=== PATIENT | female | born 1945 | race Caucasian/White ===

== ENCOUNTER 2019-08-24 13:07 | Outpatient (RCR) | payer MEDICARE, SELFPAY ==
--- NOTE | 2019-08-24 19:23 | ONC CON_ITS ---
Dr. Clifford New Patient Note Patient: Stephanie Hillman Unit #: [id number]: 1945 Dicatated By: Ankit Clifford M.D.Date of Visit: Aug 24, 2019 Onc MED New Patient/Consult Referring Physician: Dr. DEMETRIO NICHOLS M.D. Chief Complaint: Colon cancer. 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 She has been in good general health. She had a screening colonoscopy done by Dr. Jassi Dominguez on 07/01/2019. The only significant finding was a solitary deep transverse ulcer in the proximal ascending colon. It ranged in size from 8 mm to 12 mm. Biopsy showed at least intramucosal adenocarcinoma within a background of adenomatous tissue with high-grade dysplasia. Evaluation of mismatch repair proteins by IHC showed loss of nuclear expression of MLH1 and PMS2. In addition, the BRAF V600E mutation was detected. 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 CT of the abdomen/pelvis on 07/13/2019 showed a suggestion of increased soft tissue density involving the intraluminal mid a sending colon. There were atherosclerotic peripheral vascular changes noted. There was no other evidence of malignancy in the abdomen or pelvis. With those findings, she was referred to Dr. Nichols, and on 07/29/2019 she underwent laparoscopic right hemicolectomy. Pathology showed grade 2 invasive adenocarcinoma with invasion into but not through the muscularis propria. The surgical margins were free. Lymphovascular and perineural invasion were not identified. There was no involvement in 22 lymph nodes. Her pathologic staging was T2, N0. Her other medical illnesses have been limited to hypothyroidism and hyperlipidemia. Her only other surgery was a tonsillectomy. She has a history of smoking for 20 years, less than 1 pack of cigarettes daily. She quit smoking 34 years ago. She is feeling good generally. Her energy is getting better, and she is doing light work again. Her ECOG score is 1. Her appetite is good, though she does have some mild postprandial nausea and some early satiety. Her weight is stable, though. She has no fever, night sweats, or hot flashes. Her bowels have been loose since the surgery, and she does have some urgency with defecation. She has not been aware of any blood in the stool. She has no complaints. She has had some pain in her right thumb and she says her right hand goes to sleep a lot. She has no other joint or bone pain and no other focal neurologic symptoms. Past Medical History: Her medical history includes hyperlipidemia and hypothyroidism. Past Surgical History: She underwent colonoscopy on 07/01/2019 and she underwent laparoscopic right hemicolectomy on 07/29/2019. Her only other surgery was a tonsillectomy in 4. Medications: Atorvastatin Calcium 1 Tablet (of 20 mg) Oral daily, Fish Oil Concentrate 1 Capsule (of 1000 mg) Oral daily, Levothyroxine Sodium 1 Tablet (of 75 mcg) Oral daily Allergies: No Known Allergies. Social History: Ms. Hillman is and she is retired. Ms. Hillman quit smoking 34 years ago but had smoked 1.0 pack/day for 20 years. She has no history of drinking. Ms. Hillman reports the following support systems: lives with spouse, significant other, family, or friends, lives in own house, supportive family/friends willing to assist with needs, and adequate transportation available for expected visits. Her diet consists of regular meals. She indicates her activity level as: light exercise. She has a history of smoking for 20 years, less than 1 pack of cigarettes daily. She quit smoking 34 years ago. She does not drink alcohol. Family History: Ms. Hillman's mother at age 72: stroke, and urinary sepsis. Ms. Hillman's father at age 23: motor vehicle accident. Ms. Hillman has 1 brother who is alive. Father in a motor vehicle accident at age 23. Mother with complications of stroke at age 72. A brother has diabetes. A half-sister was recently found to have breast cancer. Review Of Symptoms: Constitutional - She feels good and her energy is starting to get better. She does light housework. Her appetite is good and her weight is stable. No fever, chills, hot flashes, or night sweats. ECOG score is 1, Eyes - No change in vision, ENMT - No hearing loss. She has tinnitus. No sinus congestion/drainage. No mouth sores. No sore throat or difficulty swallowing, Hematologic/Lymphatic - No abnormal bruising or bleeding, Respiratory - No shortness of breath. No cough. No pleuritic pain or hemoptysis, Cardiovascular - No angina pain. No palpitations, Gastrointestinal - She has occasional nausea and feeling of fullness. No vomiting. She has occasional heartburn. She has been having loose stools and she has some urgency with defecation. No blood in the stool or black stools, Genitourinary (F) - No dysuria or hematuria. No urinary frequency. No urgency or incontinence, Musculoskeletal - She has some pain in her right thumb. She has no other joint or bone pain, Integumentary - No skin complications, Neurologic - She has occasional migraines. No dizziness. She has numbness in her right hand, Psychiatric - No anxiety or depression. No insomnia. Vital Signs: Performed on Aug 24, 2019 14:45: 0, 23.56, 1.71 sq.m, 65 in, 99 %, 48 /min (LOW), 20 /min, 144/66 mm(hg) (HIGH), 99.0 F (HIGH), and 141.6 lbs (HIGH). Physical Examination: Constitutional - She appears to be in good general health, Eyes - Sclerae nonicteric. Conjunctivae clear, ENMT - No lesions noted in the oral cavity, Neck - No mass or thyromegaly, Hematologic/Lymphatic - No cervical, clavicular, or axillary adenopathy, Respiratory - Lungs are clear with good air movement bilaterally, Cardiovascular - Heart rhythm is regular. There is no murmur, gallop, or rub noted, Abdomen - Soft and non-tender. Her incisions appear well healed. Liver and spleen are not enlarged. There is no abdominal mass or ascites noted and there is no inguinal adenopathy, Back/Spine - No spine or CVA tenderness noted, Extremities - No edema. Dorsalis pedis pulses are palpable bilaterally, Integumentary - No rashes. No suspicious skin lesions noted, Neurologic - No focal neurologic deficits noted. Impression: 1. Patient with grade 2 invasive adenocarcinoma of the ascending colon, stage I (T2, N0, M0). 2. The tumor showed deficient mismatch repair proteins by IHC with loss of nuclear expression of MLH1 and PMS2. In addition, the BRAF V600E mutation was detected. 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 3. She underwent laparoscopic right hemicolectomy on 07/29/2019. Her other medical illnesses include: 4. Hypothyroidism. 5. Hyperlipidemia. Plan: The pathology results were reviewed with the patient and her . We discussed the clinical implications. She is seen following laparoscopic right hemicolectomy for a grade 2 adenocarcinoma of the ascending colon. She had pathologic stage I disease, with adequate lymph node sampling and with no other adverse prognostic indicators. As such, there is no indication for adjuvant chemotherapy. She will be followed on a surveillance regimen to include follow-up visits and lab studies every [address]. She also will be following up with Dr. Nichols in regard to her surveillance colonoscopy schedule. I will see her here again in 6 months. Signed By: Ankit Clifford M.D. <<Signature on File>>
== END 2019-09-17 23:59 | disposition home or self-care (01) ==
LOC: ONCMED 13:07
PROVIDERS: Family Provider Family Medicine; Visit Provider Internal Medicine Medical Oncology
DX: C18.2 Malignant neoplasm of ascending colon (principal); E03.9 Hypothyroidism, unspecified; E78.5 Hyperlipidemia, unspecified; Z87.891 Personal history of nicotine dependence; Z90.49 Acquired absence of other specified parts of digestive tract
CPT/HCPCS: 99204

== ENCOUNTER 2019-09-02 11:36 | Outpatient (CLI) | payer MEDICARE, SELFPAY ==
--- NOTE | 2019-09-02 11:50 | MM_ITS ---
WS: [id number] SCREENING DIGITAL MAMMOGRAM WITH CAD HISTORY: SCREENING COMPARISON: 04/27/2018 and 10/06/2015 Bilateral CC and MLO views submitted. Computer aided detection analyzed. Breast composition: There are scattered areas of fibroglandular density. No suspicious masses, microc alcifications or architectural distortion. MM/[id number] IMPRESSION: BI-RADS: 1-Negative FOLLOW UP: 1 Year Follow-up
== END 2019-09-02 11:37 | disposition home or self-care (01) ==
LOC: RADSHAW 11:45
PROVIDERS: Family Provider Family Medicine; PCP Family Medicine; Visit Provider Family Medicine
DX: Z12.31 Encounter for screening mammogram for malignant neoplasm of breast (principal)
CPT/HCPCS: 77067

== ENCOUNTER 2020-03-02 11:00 | Outpatient (CLI) | payer MEDICARE, SELFPAY ==
[2020-03-02 11:29] LABS: Basophils % 0.2 %; Eosinophils # 0.1 10^3/uL (0.0-0.8); Eosinophils % 1.4 %; Hematocrit 41.6 % (37.0-47.0); Lymphocytes % 50.9 %; Mean Corpuscular HGB Conc 33.7 g/dL (30.0-36.0); Mean Corpuscular Hemoglobin 30.5 pg (28.0-34.0); Mean Corpuscular Volume 90.6 fL (81-99); Mean Platelet Volume 11.3 fL (7.4-10.4); Monocytes # 0.4 10^3/uL (0.2-0.9); Monocytes % 7.3 %; Neutrophils # 2.38 10^3/uL (1.8-7.7); Neutrophils % 40.2 %; Nucleated Red Blood Cells % 0 %; Platelet Count 193 10^3/cmm (130-400); Red Blood Count 4.59 10^6/uL (4.1-5.3); Red Cell Distribution Width 13.2 % (12.1-15.1); White Blood Count 5.9 10^3/uL (4.0-10.0)
[2020-03-02 11:50] LABS: Carcinoembryonic Antigen 1.3 ng/mL (0.0-4.7)
[2020-03-02 12:01] LABS: Alanine Aminotransferase 29 U/L (0-33); Albumin Level 4.3 g/dL (3.5-5.2); Alkaline Phosphatase 74 IU/L (35-105); Anion Gap 13.9 (5-19); Aspartate Amino Transferase 31 U/L (0-32); Blood Urea Nitrogen 7 mg/dL (8-23); Calcium 9.2 mg/dL (8.5-10.5); Carbon Dioxide 26 mmol/L (22-29); Chloride 101 mmol/L (98-107); Globulin 3.3 g/dL (1.3-4.6); Glucose 108 mg/dL (65-115); Osmolality Calculated 278 mOsm/kg (285-295); Potassium 4.9 mmol/L (3.5-5.1); Sodium 136 mmol/L (136-145); Total Bilirubin 0.5 mg/dL (0.15-1.2); Total Protein 7.6 g/dL (6.6-8.7)
[2020-03-02 15:22] LABS: Chol HDL Ratio 1.88 mg/dL (0.0-4.40); Cholesterol 124 mg/dL (0-200); Free T4 Free Thyroxine 1.44 ng/dL (0.82-1.77); HDL Cholesterol 66 mg/dL (60-100); LDL Cholesterol Calculated 44 mg/dL (50-129); LDL HDL Ratio 0.67 RATIO (0.00-3.22); Thyroid Stimulating Hormone 1.18 uIU/mL (0.27-4.20); Triglycerides 71 mg/dL (0-150)
--- NOTE | 2020-03-05 15:54 | ONC FU_ITS ---
Dr. Cliffodr Patient Follow-Up Note Patient: Stephanie Hillman Unit #: [id number]: 1945 Dicatated By: Ankit Clifford M.D.Date of Visit:Mar 02, 2020 Onc Med Follow-up/Prog Note Chief Complaint: Colon cancer. 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 She has been in good general health. She had a screening colonoscopy done by Dr. Jassi Dominguez on 07/01/2019. The only significant finding was a solitary deep transverse ulcer in the proximal ascending colon. It ranged in size from 8 mm to 12 mm. Biopsy showed at least intramucosal adenocarcinoma within a background of adenomatous tissue with high-grade dysplasia. Evaluation of mismatch repair proteins by IHC showed loss of nuclear expression of MLH1 and PMS2. In addition, the BRAF V600E mutation was detected. 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 CT of the abdomen/pelvis on 07/13/2019 showed a suggestion of increased soft tissue density involving the intraluminal mid a sending colon. There were atherosclerotic peripheral vascular changes noted. There was no other evidence of malignancy in the abdomen or pelvis. With those findings, she was referred to Dr. Nichols, and on 07/29/2019 she underwent laparoscopic right hemicolectomy. Pathology showed grade 2 invasive adenocarcinoma with invasion into but not through the muscularis propria. The surgical margins were free. Lymphovascular and perineural invasion were not identified. There was no involvement in 22 lymph nodes. Her pathologic staging was T2, N0. I had seen her initially on 08/24/2019. With stage I disease there was no indication for adjuvant chemotherapy, and observation/expectant management was recommended. Her other medical illnesses have been limited to hypothyroidism and hyperlipidemia. Her only other surgery was a tonsillectomy. She has a history of smoking for 20 years, less than 1 pack of cigarettes daily. She quit smoking 34 years ago. She is seen for a follow-up visit. She has been feeling good generally. She has good energy and activity tolerance. Her ECOG score is 0. Her appetite is good. She has no fever or night sweats. She has no shortness of breath, cough, or chest pain. She has no GI/ complaints other than her stools are sometimes a little thin. She has some joint pain, mainly in the thumbs, but it is managed adequately with hyaluronic acid. She has occasional migraine headache. She has some carpal tunnel symptoms bilaterally. She has no other focal neurologic symptoms. Medications: Atorvastatin Calcium 1 Tablet (of 20 mg) Oral daily, Fish Oil Concentrate 1 Capsule (of 1000 mg) Oral daily, Hyaluronic Acid 1 Capsule (of 20-60 mg) Oral daily, Levothyroxine Sodium 1 Tablet (of 75 mcg) Oral daily Allergies: No Known Allergies. Review of Systems: Constitutional - She is feeling good. Her energy is good. She has normal activity without restrictions. Her appetite is good and her weight is up about 6 pounds from last visit. No fever, night sweats, or hot flashes. ECOG score is 0, ENMT - No sinus congestion/drainage. No mouth sores. No sore throat or difficulty swallowing, Hematologic/Lymphatic - No abnormal bruising or bleeding, Respiratory - No shortness of breath. No cough. No pleuritic pain or hemoptysis, Cardiovascular - No angina pain. No palpitations, Gastrointestinal - No nausea or vomiting. No heartburn or acid reflux. She has loose stools No constipation. No blood in the stool or black stools, Genitourinary (F) - No dysuria or hematuria. No urinary frequency. No urgency or incontinence, Musculoskeletal - She has joint pain in her hands and fingers, Integumentary - No skin complications, Neurologic - No headache or dizziness. No numbness or tingling. No other focal neurologic symptoms, Psychiatric - No anxiety or depression. No insomnia. Vital Signs: Performed on Mar 02, 2020 12:47 Height - 65.00 in Weight - 147.0 lbs (HIGH) BSA - 1.74 sq.m BMI - 24.46 Temperature - 97.8 F (LOW) Pulse - 49 /min (LOW) Respiration - 22 /min BP - 135/62 mm(hg) O2 Sat - 98 % Pain - 0 Physical Examination: Constitutional - She looks good generally, Eyes - Sclerae nonicteric. Conjunctivae clear, ENMT - No lesions noted in the oral cavity, Hematologic/Lymphatic - No cervical, clavicular, or axillary adenopathy, Respiratory - Lungs are clear with good air movement bilaterally, Cardiovascular - Heart rhythm is regular. There is no murmur, gallop, or rub noted, Abdomen - Soft. Liver and spleen are not enlarged. There is no abdominal mass or ascites noted and there is no inguinal adenopathy, Extremities - No edema, Neurologic - No focal neurologic deficits noted. Lab/Imaging: Test performed on Mar 02, 2020 11:12 Sodium 136 mmol/L Potassium 4.9 mmol/L Chloride 101 mmol/L CO2 26 mmol/L Anion Gap 13.9 BUN 7 mg/dL Creatinine 0.6 mg/dL Cr Clearance (Est) 87.90 mL/min Glucose 108 mg/dL Calcium 9.2 mg/dL Protein, Total 7.6 g/dL Albumin 4.3 g/dL Globulin 3.3 g/dL Bilirubin, Total 0.5 mg/dL ALT (SGPT) 29 U/L AST (SGOT) 31 U/L Alkaline Phosphatase 74 IU/L WBC 5.9 10 3/uL RBC 4.59 10 6/uL HGB 14.0 g/dL HCT 41.6 % MCV 90.6 fL MCH 30.5 pg MCHC 33.7 g/dL RDW 13.2 % Platelet Count 193 10 3/cmm MPV 11.3 fL Neutrophils 2.38 10 3/uL Lymphocytes 3.0 10 3/uL Monocytes 0.4 10 3/uL Eosinophils 0.1 10 3/uL Basophils 0.0 10 3/uL Neutrophil % 40.2 % Lymphocyte % 50.9 % Monocyte % 7.3 % Eosinophil % 1.4 % Basophils % 0.2 % NRBC % 0 % CEA 1.3 ng/mL Impression: 1. Patient with grade 2 invasive adenocarcinoma of the ascending colon, stage I (T2, N0, M0). 2. The tumor showed deficient mismatch repair proteins by IHC with loss of nuclear expression of MLH1 and PMS2. In addition, the BRAF V600E mutation was detected. 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 3. She underwent laparoscopic right hemicolectomy on 07/29/2019. Her other medical illnesses include: 4. Hypothyroidism. 5. Hyperlipidemia. With stage I disease there was no indication for adjuvant chemotherapy. She is being followed on observation/expectant management. Thus far she appears to be doing well clinically with no evidence of recurrence of the colon cancer. Plan: She remains on observation/expectant management. I will see her again in 6 months. She will have surveillance CT scans with that visit, per NCCN guidelines. She also will need surveillance colonoscopy. She would like to have that done by Dr. Dominguez, if possible. Signed By: Ankit Clifford M.D. <<Signature on File>>
== END 2020-03-02 11:01 | disposition home or self-care (01) ==
LOC: ONCMED 11:05
PROVIDERS: PCP Family Medicine; Visit Provider Internal Medicine Medical Oncology
DX: Z08 Encounter for follow-up examination after completed treatment for malignant neoplasm (principal); Z85.038 Personal history of other malignant neoplasm of large intestine; E03.9 Hypothyroidism, unspecified; E78.5 Hyperlipidemia, unspecified; Z90.49 Acquired absence of other specified parts of digestive tract
CPT/HCPCS: 80053; 80061; 82378; 84439; 84443; 85025; G0463

== ENCOUNTER 2020-09-12 07:40 | Outpatient (CLI) | payer MEDICARE, SELFPAY ==
[2020-09-12 08:47] LABS: Basophils % 0.3 %; Eosinophils # 0.1 10^3/uL (0.0-0.8); Eosinophils % 1.5 %; Hematocrit 41.7 % (37.0-47.0); Hemoglobin 14.4 g/dL (11.5-15.3); Lymphocytes # 2.9 10^3/uL (0.8-4.8); Lymphocytes % 48.2 %; Mean Corpuscular HGB Conc 34.5 g/dL (30.0-36.0); Mean Corpuscular Volume 89.7 fL (81-99); Mean Platelet Volume 11.3 fL (7.4-10.4); Monocytes # 0.5 10^3/uL (0.2-0.9); Monocytes % 8.1 %; Neutrophils # 2.47 10^3/uL (1.8-7.7); Neutrophils % 41.7 %; Nucleated Red Blood Cells % 0 %; Platelet Count 195 10^3/cmm (130-400); Red Blood Count 4.65 10^6/uL (4.1-5.3); Red Cell Distribution Width 12.8 % (12.1-15.1); White Blood Count 5.9 10^3/uL (4.0-10.0)
--- NOTE | 2020-09-12 08:48 | CT_ITS ---
WS: [id number] CT CHEST, ABDOMEN, AND PELVIS TECHNIQUE: Contrast-enhanced CT of the chest, abdomen, and pelvis with coronal and sagittal reformatt ed images. CLINICAL INFORMATION: COLON CANCER COMPARISON: CT 11 ,018 DLP: 1111.[address] scans at [facility] use at least one of these dose optimization techniques: automat ed exposure control; mA and/or kV adjustment per patient size (includes targeted exams where dose is matched to clinical indication); or iterative reconstruction. CT CHEST: Lungs are well aerated. No suspicious pulmonary parenchymal opacities. No acute pulmonary infiltrates . No focal consolidation or pleural fluid. No mediastinal or hilar lymphadenopathy. No axillary lymph adenopathy. Fatty infiltration of the liver. Normal caliber thoracic aorta. Small amount of tree-in-b ud infiltrate in the right upper lobe likely inflammatory. CT ABDOMEN AND PELVIS: Diffuse fatty infiltration of the liver. Normal portal vein and splenic vein. Normal gallbladder. Nor mal spleen Normal GE junction. Normal pancreas. Normal adrenal glands. Normal renal parenchymal enhan cement. No hydronephrosis. Normal caliber abdominal aorta. No abdominal lymphadenopathy. Sigmoid diverticulosis. No evidence of high-grade small or large bowel obstruction. Evidence of right colectomy. No pelvic or inguinal lymphadenopathy. Disc space narrowing worse at L3-L4 L4-L5 and L5-S 1. CT/CT chest abd pel w con* IMPRESSION: 1. No evidence of metastatic disease in the chest abdomen or pelvis. 2. No mediastinal or hilar lymphadenopathy. No abdominal or pelvic lymphadenop athy. 3. Evidence of prior right hemicolectomy. 4. No hydronephrosis in either kidney. 5. Sigmoid diverticulosis.
[2020-09-12 09:40] LABS: Alanine Aminotransferase 49 U/L (0-33); Albumin Level 4.1 g/dL (3.5-5.2); Alkaline Phosphatase 81 IU/L (35-105); Blood Urea Nitrogen 9 mg/dL (8-23); Calcium 9.4 mg/dL (8.5-10.5); Carbon Dioxide 27 mmol/L (22-29); Chloride 104 mmol/L (98-107); Globulin 3.6 g/dL (1.3-4.6); Glucose 103 mg/dL (65-115); Osmolality Calculated 285 mOsm/kg (285-295); Sodium 138 mmol/L (136-145); Total Bilirubin 0.7 mg/dL (0.15-1.2); Total Protein 7.7 g/dL (6.6-8.7)
[2020-09-12] MEDS: iohexol 300 mg/mL 50 mL Btl PO (09:40)
[2020-09-12 09:43] LABS: Aspartate Amino Transferase 53 U/L (0-32)
[2020-09-12] MEDS: iohexol 300 mg/mL 100 mL Btl IV (10:40)
[2020-09-12 15:28] LABS: Carcinoembryonic Antigen 1.2 ng/mL (0.0-4.7)
== END 2020-09-12 07:41 | disposition home or self-care (01) ==
PROVIDERS: PCP Family Medicine; Visit Provider Internal Medicine Medical Oncology
DX: C18.2 Malignant neoplasm of ascending colon (principal)
CPT/HCPCS: 36415; 71260; 74177; 80053; 82378; 85025; Q9967

== ENCOUNTER 2020-09-14 06:01 | Outpatient (CLI) | payer MEDICARE, SELFPAY ==
--- NOTE | 2020-09-14 09:56 | ONC FU_ITS ---
Dr. Clifford Patient Follow-Up Note Patient: Stephanie Hillman Unit #: [id number]: 1945 Dicatated By: Ankit Clifford M.D.Date of Visit:Sep 14, 2020 Onc Med Follow-up/Prog Note Chief Complaint: Colon cancer. 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 She had a screening colonoscopy done by Dr. Jassi Dominguez on 07/01/2019. The only significant finding was a solitary deep transverse ulcer in the proximal ascending colon. It ranged in size from 8 mm to 12 mm. Biopsy showed at least intramucosal adenocarcinoma within a background of adenomatous tissue with high-grade dysplasia. Evaluation of mismatch repair proteins by IHC showed loss of nuclear expression of MLH1 and PMS2. In addition, the BRAF V600E mutation was detected. 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 CT of the abdomen/pelvis on 07/13/2019 showed a suggestion of increased soft tissue density involving the intraluminal mid a sending colon. There were atherosclerotic peripheral vascular changes noted. There was no other evidence of malignancy in the abdomen or pelvis. With those findings, she was referred to Dr. Nichols, and on 07/29/2019 she underwent laparoscopic right hemicolectomy. Pathology showed grade 2 invasive adenocarcinoma with invasion into but not through the muscularis propria. The surgical margins were free. Lymphovascular and perineural invasion were not identified. There was no involvement in 22 lymph nodes. Her pathologic staging was T2, N0. I had seen her initially on 08/24/2019. With stage I disease there was no indication for adjuvant chemotherapy, and observation/expectant management was recommended. Her other medical illnesses have been limited to hypothyroidism and hyperlipidemia. Her only other surgery was a tonsillectomy. She has a history of smoking for 20 years, less than 1 pack of cigarettes daily. She quit smoking 34 years ago. She is seen for a follow-up visit. She says she has been feeling fine. Her energy is pretty good. She has normal activity. ECOG score is 0. Her appetite is good. She has no fever or night sweats. She has no shortness of breath, cough, or chest pain. She has no GI/ complaints other than her bowels have been a little loose since her colon surgery. She has back pain, which has been going on for years. She has no other joint or bone pain. She does not complain of headache or dizziness. She sometimes has numbness in her right hand, but that she attributes to quilting. Medications: Atorvastatin Calcium 1 Tablet (of 20 mg) Oral daily, Fish Oil Concentrate 1 Capsule (of 1000 mg) Oral daily, Hyaluronic Acid 1 Capsule (of 20-60 mg) Oral daily, Levothyroxine Sodium 1 Tablet (of 75 mcg) Oral daily Allergies: No Known Allergies. Vital Signs: Performed on Sep 14, 2020 09:08 Height - 65.00 in Weight - 149 lbs (HIGH) BSA - 1.75 sq.m BMI - 24.80 Temperature - 97.0 F (LOW) Pulse - 60 /min Respiration - 17 /min BP - 162/71 mm(hg) (HIGH) O2 Sat - 98 % Pain - 0 Physical Examination: Constitutional - She looks good generally, Eyes - Sclerae nonicteric. Conjunctivae clear, ENMT - No lesions noted in the oral cavity, Hematologic/Lymphatic - No cervical, clavicular, or axillary adenopathy, Respiratory - Lungs are clear with good air movement bilaterally, Cardiovascular - Heart rhythm is regular. There is no murmur, gallop, or rub noted, Abdomen - Soft. Liver and spleen are not enlarged. There is no abdominal mass or ascites noted and there is no inguinal adenopathy, Extremities - No edema, Neurologic - No focal neurologic deficits noted. Lab/Imaging: CBC shows hemoglobin 14.4 g, white blood cell count 5900, and platelet count 195,000. Comprehensive metabolic profile is unremarkable except for slightly elevated liver enzymes with SGOT 53/32 and SGPT 49/33 U/L. The alkaline phosphatase and bilirubin are normal. CEA is stable at 1.2 ng/mL. Surveillance CT scans on 09/12/2020 showed no evidence of metastatic disease in the chest, abdomen, or pelvis. Problem List: 1. Ekaterina 2 invasive adenocarcinoma of the ascending colon, stage I (T2, N0, M0). The tumor showed deficient mismatch repair proteins by IHC with loss of nuclear expression of MLH1 and PMS2. In addition, the BRAF V600E mutation was detected. 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 2. She underwent laparoscopic right hemicolectomy on 07/29/2019. Adjuvant chemotherapy was not recommended. 3. Hypothyroidism. 4. Hyperlipidemia. Problems Addressed with this Encounter and Plan: Ekaterina 2 invasive adenocarcinoma of the ascending colon, stage I (T2, N0, M0). The tumor showed deficient mismatch repair proteins by IHC with loss of nuclear expression of MLH1 and PMS2. She is being followed on observation/expectant management followinglaparoscopic right hemicolectomy on 07/29/2019, as adjuvant chemotherapy was not indicated. At this point she appears to be doing well clinically with no evidence of recurrence of the colon cancer. She remains on observation/expectant management. She has seen Dr. Russo in regard to follow-up colonoscopy. She continues her regular follow-up with Dr. Dominguez. I will see her again in 6 months. Signed By: Ankit Clifford M.D. <<Signature on File>>
== END 2020-09-14 06:02 | disposition home or self-care (01) ==
LOC: ONCMED 06:03
PROVIDERS: PCP Family Medicine; Visit Provider Internal Medicine Medical Oncology
DX: Z08 Encounter for follow-up examination after completed treatment for malignant neoplasm (principal); Z85.038 Personal history of other malignant neoplasm of large intestine; E03.9 Hypothyroidism, unspecified; E78.5 Hyperlipidemia, unspecified; Z90.49 Acquired absence of other specified parts of digestive tract
CPT/HCPCS: G0463

== ENCOUNTER 2020-09-15 08:06 | Outpatient (CLI) | payer MEDICARE, SELFPAY ==
--- NOTE | 2020-09-15 08:11 | MM_ITS ---
WS: [id number] SCREENING DIGITAL MAMMOGRAM WITH CAD HISTORY: SCREENING COMPARISON: 09/02/2019 and 04/27/2018 Bilateral CC and MLO views submitted. Computer aided detection analyzed. Breast composition: There are scattered areas of fibroglandular density. No suspicious masses, microc alcifications or architectural distortion. MM/[id number] IMPRESSION: BI-RADS: 1-Negative FOLLOW UP: 1 Year Follow-up
== END 2020-09-15 08:07 | disposition home or self-care (01) ==
LOC: RADSHAW 08:08
PROVIDERS: PCP Family Medicine; Visit Provider Family Medicine
DX: Z12.31 Encounter for screening mammogram for malignant neoplasm of breast (principal)
CPT/HCPCS: 77067

== ENCOUNTER 2021-03-19 13:30 | Outpatient (CLI) | payer MEDICARE, SELFPAY ==
--- NOTE | 2021-03-23 14:01 | ONC FU_ITS ---
Dr. Clifford Patient Follow-Up Note Patient: Stephanie Hillman Unit #: [id number]: 1945 Dicatated By: Ankit Clifford M.D.Date of Visit:Mar 19, 2021 Onc Med Follow-up/Prog Note Chief Complaint: Colon cancer. 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 She had a screening colonoscopy done by Dr. Jassi Dominguez on 07/01/2019. The only significant finding was a solitary deep transverse ulcer in the proximal ascending colon. It ranged in size from 8 mm to 12 mm. Biopsy showed at least intramucosal adenocarcinoma within a background of adenomatous tissue with high-grade dysplasia. Evaluation of mismatch repair proteins by IHC showed loss of nuclear expression of MLH1 and PMS2. In addition, the BRAF V600E mutation was detected. 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 CT of the abdomen/pelvis on 07/13/2019 showed a suggestion of increased soft tissue density involving the intraluminal mid a sending colon. There were atherosclerotic peripheral vascular changes noted. There was no other evidence of malignancy in the abdomen or pelvis. With those findings, she was referred to Dr. Nichols, and on 07/29/2019 she underwent laparoscopic right hemicolectomy. Pathology showed grade 2 invasive adenocarcinoma with invasion into but not through the muscularis propria. The surgical margins were free. Lymphovascular and perineural invasion were not identified. There was no involvement in 22 lymph nodes. Her pathologic staging was T2, N0. I had seen her initially on 08/24/2019. With stage I disease there was no indication for adjuvant chemotherapy, and observation/expectant management was recommended. Her other medical illnesses have been limited to hypothyroidism and hyperlipidemia. Her only other surgery was a tonsillectomy. She has a history of smoking for 20 years, less than 1 pack of cigarettes daily. She quit smoking 34 years ago. She is seen for a follow-up visit. She has been feeling good generally. She has good energy and activity tolerance. Her ECOG score is 0. She has good appetite. She has no fever or night sweats. She has a little bit of sinus drainage. She does not complain of cough, she does not have shortness of breath or chest pain. She has no GI/ complaints other than her stools tend to be loose. She has just a little bit of joint pain. She does not complain of headache or dizziness, and she has no focal neurologic symptoms. Medications: Atorvastatin Calcium 1 Tablet (of 20 mg) Oral daily, Fish Oil Concentrate 1 Capsule (of 1000 mg) Oral daily, Hyaluronic Acid 1 Capsule (of 20-60 mg) Oral daily, Levothyroxine Sodium 1 Tablet (of 75 mcg) Oral daily Allergies: No Known Allergies. Vital Signs: Performed on Mar 19, 2021 15:53 Height - 65.00 in Weight - 146.8 lbs (LOW) BSA - 1.73 sq.m BMI - 24.43 Temperature - 97.8 F (LOW) Pulse - 56 /min (LOW) Respiration - 18 /min BP - 165/68 mm(hg) (HIGH) O2 Sat - 97 % Pain - 0 Fatigue - 0 Physical Examination: Constitutional - She looks good generally, Eyes - Sclerae nonicteric. Conjunctivae clear, ENMT - No lesions noted in the oral cavity, Hematologic/Lymphatic - No cervical, clavicular, or axillary adenopathy, Respiratory - Lungs are clear with good air movement bilaterally, Cardiovascular - Heart rhythm is regular. There is no murmur, gallop, or rub noted, Abdomen - Soft. Liver and spleen are not enlarged. There is no abdominal mass or ascites noted and there is no inguinal adenopathy, Extremities - No edema, Neurologic - No focal neurologic deficits noted. Lab/Imaging: Test performed on Mar 08, 2021 14:24 TSH 1.610 uU/mL Cholesterol, Total 137 mg/dL HDL Cholesterol 72 mg/dL LDL Cholesterol 50 mg/dL Triglycerides 74 mg/dL CEA 0.7 ng/mL Test performed on Mar 08, 2021 14:17 Glucose 88 mg/dL BUN 8 mg/dL Creatinine 0.71 mg/dL Cr Clearance (Est) 73.0800 mL/min Sodium 138 mmol/L Potassium 4.5 mmol/L Chloride 106 mmol/L CO2 30 mmol/L Calcium 9.3 mg/dL Protein, Total 7.7 g/dL Albumin 4.0 g/dL Bilirubin, Total 0.6 mg/dL Alkaline Phosphatase 82 IU/L AST (SGOT) 55 IU/L ALT (SGPT) 55 IU/L WBC 5.2 10^9/L RBC 4.71 10^12/L HGB 14.6 g/dL HCT 43.2 % MCV 91.7 fl MCH 31.0 pg MCHC 33.8 g/dL RDW 13.5 % Platelet Count 175 10^9/L MPV 12.2 fL Neutrophils (Gran) 2.2 10^9/L Lymphocytes 2.5 10^9/L Monocytes 0.4 10^9/L Eosinophils 0.1 10^9/L Basophils 0.0 10^9/L Manual Segs 42.0 % Manual Lymphocytes 47.6 % Manual Monocytes 8.3 % Problem List: 1. Ekaterina 2 invasive adenocarcinoma of the ascending colon, stage I (T2, N0, M0). The tumor showed deficient mismatch repair proteins by IHC with loss of nuclear expression of MLH1 and PMS2. In addition, the BRAF V600E mutation was detected. 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 2. She underwent laparoscopic right hemicolectomy on 07/29/2019. Adjuvant chemotherapy was not recommended. 3. Hypothyroidism. 4. Hyperlipidemia. Problems Addressed with this Encounter and Plan: Patient with grade 2 invasive adenocarcinoma of the ascending colon, stage I (T2, N0, M0). The tumor showed deficient mismatch repair proteins by IHC with loss of nuclear expression of MLH1 and PMS2. She is being followed on observation/expectant management followinglaparoscopic right hemicolectomy on 07/29/2019, as adjuvant chemotherapy was not indicated. At this point she appears to be doing well clinically with no evidence of recurrence of the colon cancer. She remains on observation/expectant management. During follow-up she has been doing well clinically with no evidence of recurrence of the colon cancer. She is going to see Dr. Mann for surveillance colonoscopy. I will see her again in 6 months. She will have surveillance CT scans with that visit. Signed By: Ankit Clifford M.D. <<Signature on File>>
== END 2021-03-19 13:31 | disposition home or self-care (01) ==
LOC: ONCMED 13:36
PROVIDERS: PCP Family Medicine; Visit Provider Internal Medicine Medical Oncology
DX: Z08 Encounter for follow-up examination after completed treatment for malignant neoplasm (principal); Z85.038 Personal history of other malignant neoplasm of large intestine; E03.9 Hypothyroidism, unspecified; E78.5 Hyperlipidemia, unspecified; Z79.899 Other long term (current) drug therapy; Z92.21 Personal history of antineoplastic chemotherapy
CPT/HCPCS: G0463

== ENCOUNTER 2021-03-26 14:04 | Outpatient (CLI) | payer MEDICARE, SELFPAY ==
--- NOTE | 2021-03-26 14:09 | XR_ITS ---
WS: [id number] DEXA (DUAL ENERGY X-RAY ABSORPTIOMETRY) Bone mineral density was performed using a [employer] machine. HISTORY: ASYMPTOMATIC MENOPAUSAL STATE COMPARISON: 05/26/2018 Lumbar spine BMD (L1-L4): 1.436 g/cm2 T score: 2.1 Z score: 3.8 Total hip BMD: Left: 0.933 g/cm2. T score: -0.6 Z score: 1.1 Right: 0.966 g/cm2. T score: -0.3 Z score: 1.4 10 year probability of a major osteoporotic fracture is 9%. Compared to the prior study from 05/26/2018. Lumbar spine bone mineral density has increased by 6.2%. Bilateral hips bone mineral density has decreased by 2.2%. XR/XR DEXA axial skeleton* 71200 IMPRESSION: NORMAL BONE MINERAL DENSITY based upon the WHO classification for females. Significant increase in bone mineral density in the lumbar spine but decrease o f bone mineral density within the hips.
== END 2021-03-26 14:05 | disposition home or self-care (01) ==
PROVIDERS: PCP Family Medicine; Visit Provider Family Medicine
DX: Z78.0 Asymptomatic menopausal state (principal)
CPT/HCPCS: 77080

== ENCOUNTER 2021-05-31 07:46 | Day surgery (SDC) | payer MEDICARE, SELFPAY ==
[2021-05-28 14:50] VITALS: BMI 23.3
--- NOTE | 2021-05-31 07:53 | ANES.PREANE2 ---
Pre-Anesthetic Assessment Pre-Anesthetic Assessment: Height/Weight: Height 1.65 m Weight 63.503 kg Preop Diagnosis: hx colon cancer Proposed Procedure: Operation Date: 05/31/21 09:30 Proposed Procedures p Colonoscopy 88558 Z85.038(Not Applicable) - Mars Mann MD Familial anesthetic complications: None Last intake: . 8 hrs Social: Social History: No alcohol and No tobacco Exam: Pre-Anes Outpt Exam: alert, oriented x 3, clear to auscultation bilaterally and regular rate & rhythm Airway: MP: 1 Dentition: Other (missing) Metabolic: Metabolic: Hyperlipidemia and Thyroid Anesthetic Plan: ASA status: 2 Anesthesia: MAC Risk of > 500 ml blood loss (7ml/kg in children): No PFSH Anesthesia PFSH: Medical History (Updated 03/27/21 @ 11:04 by Mars Mann MD) History of colon cancer Hyperlipidemia Hypothyroidism Surgical History (Updated 03/27/21 @ 11:04 by Mars Mann MD) History of colon resection 07/2019 History of colonoscopy with polypectomy 2018 Family History (Updated 03/27/21 @ 10:58 by Lorenza Reed) Other CAD (coronary artery disease) Cancer Diabetes Denies family history of Stroke Social History (Updated 03/27/21 @ 10:58 by Lorenza Reed) Smoking and tobacco status: never smoked Second hand smoke exposure: No Alcohol intake: never Lives independently: Yes Household members: spouse Marital status: Data Anesthesia Cardiac Studies: No Data to Display
[2021-05-31 08:25] VITALS: BP 146/69; PULSE 60; RESP 18; TEMP 36.2; O2SAT 97
[2021-05-31] MEDS: sodium chloride 0.9% 1,000 ML 30 ML IV (08:44)
--- NOTE | 2021-05-31 09:48 | P.HP_ITS ---
Same Day Surgery H&P Indication for Procedure/HPI DATE OF PROCEDURE: May 31, 2021 CHIEF COMPLAINT/INDICATIONFOR SURGICAL PROCEDURE: colonoscopy PREOP DIAGNOSIS: screening colonoscopy PLANNED PROCEDRUE: Operation Date: 05/31/21 09:30 Proposed Procedures p Colonoscopy 39233 Z85.038(Not Applicable) - Mars Mann MD Medications/Allergies* Home Medications Medication Instructions Recorded Confirmed Type atorvastatin 20 mg tablet 20 mg PO DAILY 03/27/21 05/28/21 History levothyroxine 50 mcg capsule 50 mcg PO DAILY 03/27/21 05/28/21 History Hyaluronic Acid (sodium) 125 mg PO DAILY 05/28/21 05/28/21 History omega-3 fatty acids [[place] 3 Fish 2 cap PO DAILY 05/28/21 05/28/21 History Oil] Allergies/Adverse Reactions Allergy/AdvReac Type Severity Reaction Status Date / Time No Known Allergies Allergy Verified 05/28/21 14:50 Current Medications: Generic Name Dose Route Start Last Admin Trade Name Freq PRN Reason Stop Dose Admin Sodium Chloride 1,000 mls @ 30 mls/hr 05/31/21 08:30 05/31/21 08:44 Sodium Chloride 0.9% IV 06/01/21 08:29 30 mls/hr .Q24H MARYAM Administration Pertinent History/Comorbid Conditions* Medical History (Updated 03/27/21 @ 11:04 by Mars Mann MD) History of colon cancer Hyperlipidemia Hypothyroidism Surgical History (Updated 03/27/21 @ 11:04 by Mars Mann MD) History of colon resection 07/2019 History of colonoscopy with polypectomy 2018 Family History (Updated 03/27/21 @ 10:58 by Lorenza Reed) Diabetes CAD (coronary artery disease) Cancer Denies family history of Stroke Social History Smoking and tobacco status: never smoked Second hand smoke exposure: No Alcohol intake: never Lives independently: Yes Household members: spouse Marital status: Pertinent Exam Findings alert, oriented x 3 and regular rate & rhythm Recommendations Surgery/Procedure today Coding Level of Care Code Acute 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
[2021-05-31 10:47] VITALS: BP 123/58; PULSE 70; RESP 16; TEMP 36.2; O2SAT 97
[2021-05-31 10:57] VITALS: BP 117/63; PULSE 65; RESP 18; O2SAT 95
--- NOTE | 2021-05-31 11:26 | ANE.PACU2 ---
Inpatient post-anesthesia follow up: Airway intact: Yes Vital signs: Temperature 97.1 F Pulse Rate 65 Respiratory Rate 18 Blood Pressure 117/63 Pulse Oximetry 95 Oxygen Delivery Me thod Room Air Oxygen Flow Rate Fraction of Inspir ed Oxygen Hydration adequate: Yes Nausea and vomiting: No Mental status: Baseline
== END 2021-05-31 11:22 | disposition home or self-care (01) ==
PROVIDERS: PCP Family Medicine; Visit Provider Surgery
PROC: 0DJD8ZZ Inspection of Lower Intestinal Tract, Via Natural or Artificial Opening Endoscopic (ICD-10-PCS; CPT 45378; principal; 2021-05-31 09:30)
DX: Z12.11 Encounter for screening for malignant neoplasm of colon (principal); Z85.038 Personal history of other malignant neoplasm of large intestine; K57.30 Diverticulosis of large intestine without perforation or abscess without bleeding; K64.8 Other hemorrhoids; E78.5 Hyperlipidemia, unspecified; E03.9 Hypothyroidism, unspecified; Z90.49 Acquired absence of other specified parts of digestive tract; Z82.49 Family history of ischemic heart disease and other diseases of the circulatory system; Z83.3 Family history of diabetes mellitus
CPT/HCPCS: 45378; 96360; 96361; J2704; J7030

== ENCOUNTER 2021-09-06 11:03 | Outpatient (CLI) | payer MEDICARE, SELFPAY ==
--- NOTE | 2021-09-06 | CT_ITS ---
WS: [id number] CT CHEST, ABDOMEN, AND PELVIS TECHNIQUE: Contrast-enhanced CT of the chest, abdomen, and pelvis with coronal and sagittal reformatt ed images. CLINICAL INFORMATION: ASCENDING COLON NEOPLASM COMPARISON: CT 126.1 DLP: 1891.[address] scans at [facility] use at least one of these dose optimization techniques: automated e xposure control; mA and/or kV adjustment per patient size (includes targeted exams where dose is matc hed to clinical indication); or iterative reconstruction. CT CHEST: Both lungs are well aerated. No acute pulmonary infiltrates. No focal pneumonia or pleural fluid. No new pulmonary parenchymal abnormalities. No mediastinal or hilar lymphadenopathy. Stable right upper lobe fibrotic appearing tree-in-bud type opacity is similar to previous with a small central opacity measuring 5 mm unchanged. Associated adjacent vessel. Normal caliber thoracic aorta. Aortic calcifica tion. Proximal main pulmonary arteries are normal. No mediastinal or hilar lymphadenopathy. No axillary lymphadenopathy. CT ABDOMEN AND PELVIS: Diffuse fatty infiltration the liver. Mild hepatomegaly. Normal portal vein and splenic vein. Normal spleen. Normal GE junction. Adrenal glands are normal. Normal renal parenchymal enhancement. No hydro nephrosis. A few tiny renal cysts. Celiac and SMA are patent proximally. Mild aortic calcification. N ormal caliber abdominal aorta. No periaortic or retroperitoneal lymphadenopathy. Urine distended blad monet. Sigmoid diverticulosis. No evidence of acute diverticulitis. Prior right hemicolectomy. No periaortic or pelvic lymphadenopathy. No inguinal lymphadenopathy. Normal thoracic spine. Disc space narrowing L4 L4 L5 and L5-S1. CT/CT chest abd pel w con* IMPRESSION: 1. No evidence of metastatic disease in the chest abdomen or pelvis. 2. No lymphadenopathy in the chest abdomen or pelvis. 3. Previously described right upper lobe opacity with a tree-in-bud like confi guration is persistent measuring 5 mm. Small adjacent vessel. No other pulmonar y opacities. Considering persistence, recommend 6 month follow-up chest CT to e nsure stability. 4. Diffuse fatty infiltration the liver. 5. Evidence of prior right hemicolectomy. 6. No other significant changes.
[2021-09-06 12:23] LABS: Blood Urea Nitrogen 8 mg/dL (8-23)
[2021-09-06] MEDS: iohexol 300 mg/mL 100 mL Btl IV (15:19)
== END 2021-09-06 11:04 | disposition home or self-care (01) ==
LOC: RADWPI 11:06
PROVIDERS: PCP Family Medicine; Visit Provider Internal Medicine Medical Oncology
DX: C18.2 Malignant neoplasm of ascending colon (principal); K76.0 Fatty (change of) liver, not elsewhere classified; Z90.49 Acquired absence of other specified parts of digestive tract
CPT/HCPCS: 71260; 74177; 82565; 84520; Q9967

== ENCOUNTER 2021-10-08 09:41 | Outpatient (CLI) | payer MEDICARE, SELFPAY ==
[2021-10-08 10:18] LABS: Basophils % 0.5 %; Eosinophils # 0.1 10^3/uL (0.0-0.8); Eosinophils % 1.7 %; Hematocrit 40.6 % (37.0-47.0); Lymphocytes # 2.5 10^3/uL (0.8-4.8); Lymphocytes % 42.3 %; Mean Corpuscular HGB Conc 34.5 g/dL (30.0-36.0); Mean Corpuscular Hemoglobin 31.3 pg (28.0-34.0); Mean Corpuscular Volume 90.8 fl (81-99); Mean Platelet Volume 10.9 fL (7.4-10.4); Monocytes # 0.4 10^3/uL (0.2-0.9); Monocytes % 7.6 %; Neutrophils # 2.76 10^3/uL (1.8-7.7); Neutrophils % 47.7 %; Nucleated Red Blood Cells % 0 %; Platelet Count 183 10^3/cmm (130-400); Red Blood Count 4.47 10^6/uL (4.1-5.3); Red Cell Distribution Width 12.7 % (12.1-15.1); White Blood Count 5.8 10^3/uL (4.0-10.0)
[2021-10-08 10:45] LABS: Alanine Aminotransferase 47 U/L (0-33); Albumin Level 4.2 g/dL (3.5-5.2); Alkaline Phosphatase 88 IU/L (35-105); Aspartate Amino Transferase 42 U/L (0-32); Blood Urea Nitrogen 8 mg/dL (8-23); Calcium 9.6 mg/dL (8.5-10.5); Carbon Dioxide 25 mmol/L (22-29); Chloride 106 mmol/L (98-107); Globulin 3.3 g/dL (1.3-4.6); Glucose 109 mg/dL (65-115); Osmolality Calculated 291 mOsm/kg (285-295); Sodium 141 mmol/L (136-145); Total Bilirubin 0.4 mg/dL (0.15-1.2); Total Protein 7.5 g/dL (6.6-8.7)
[2021-10-08 10:47] LABS: Anion Gap 14.1 (5-19); Potassium 4.1 mmol/L (3.5-5.1)
--- NOTE | 2021-10-11 07:17 | ONC FU_ITS ---
Dr. Clifford Patient Follow-Up Note Patient: Stephanie Hillman Unit #: [id number]: 1945 Dicatated By: Ankit Clifford M.D.Date of Visit:Oct 08, 2021 Onc Med Follow-up/Prog Note Chief Complaint: Colon cancer. 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 She had a screening colonoscopy done by Dr. Jassi Dominguez on 07/01/2019. The only significant finding was a solitary deep transverse ulcer in the proximal ascending colon. It ranged in size from 8 mm to 12 mm. Biopsy showed at least intramucosal adenocarcinoma within a background of adenomatous tissue with high-grade dysplasia. Evaluation of mismatch repair proteins by IHC showed loss of nuclear expression of MLH1 and PMS2. In addition, the BRAF V600E mutation was detected. 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 CT of the abdomen/pelvis on 07/13/2019 showed a suggestion of increased soft tissue density involving the intraluminal mid a sending colon. There were atherosclerotic peripheral vascular changes noted. There was no other evidence of malignancy in the abdomen or pelvis. With those findings, she was referred to Dr. Nichols, and on 07/29/2019 she underwent laparoscopic right hemicolectomy. Pathology showed grade 2 invasive adenocarcinoma with invasion into but not through the muscularis propria. The surgical margins were free. Lymphovascular and perineural invasion were not identified. There was no involvement in 22 lymph nodes. Her pathologic staging was T2, N0. I had seen her initially on 08/24/2019. With stage I disease there was no indication for adjuvant chemotherapy, and observation/expectant management was recommended. Her other medical illnesses have been limited to hypothyroidism and hyperlipidemia. Her only other surgery was a tonsillectomy. She has a history of smoking for 20 years, less than 1 pack of cigarettes daily. She quit smoking 34 years ago. INTERIM HISTORY: Surveillance CT scans on 09/06/2021 showed a fibrotic appearing 5 mm opacity in the upper lobe of the right lung. A 6-month interval follow-up study was recommended. Also noted was diffuse fatty infiltration of the liver. There was no evidence of metastatic disease. She is seen for a follow-up visit. She occasionally has fatigue, but she has normal activity. ECOG score 0. Her appetite is good. She has no fever or night sweats. She has not had sore mouth or throat. She does not complain of cough, and she has not been having shortness of breath or chest pain. She has no GI or complaints. She does have some joint pain, mainly in the hands, and she also has back pain. She has occasional migraine headache. She has some numbness in her hands, but it is intermittent. Medications: Atorvastatin Calcium 1 Tablet (of 20 mg) Oral daily, Fish Oil Concentrate 1 Capsule (of 1000 mg) Oral daily, Hyaluronic Acid 1 Capsule (of 20-60 mg) Oral daily, Levothyroxine Sodium 1 Tablet (of 75 mcg) Oral daily Allergies: No Known Allergies. Vital Signs: Performed on Oct 08, 2021 11:05 Height - 65.00 in Weight - +149.4 lbs (HIGH) BSA - 1.75 sq.m BMI - 24.86 Temperature - 98.6 F Pulse - 58 /min (LOW) Respiration - 16 /min BP - 154/65 mm(hg) (HIGH) O2 Sat - 96 % Pain - 0 Fatigue - 6 Physical Examination: Constitutional - She looks good generally, Eyes - Sclerae nonicteric. Conjunctivae clear, ENMT - No lesions noted in the oral cavity, Hematologic/Lymphatic - No cervical, clavicular, or axillary adenopathy, Respiratory - Lungs are clear with good air movement bilaterally, Cardiovascular - Heart rhythm is regular. There is no murmur, gallop, or rub noted, Abdomen - Soft. Liver and spleen are not enlarged. There is no abdominal mass or ascites noted and there is no inguinal adenopathy, Extremities - No edema, Neurologic - No focal neurologic deficits noted. Lab/Imaging: Test performed on Oct 08, 2021 10:05 Sodium 141 mmol/L Potassium 4.1 mmol/L Chloride 106 mmol/L CO2 25 mmol/L Anion Gap 14.1 BUN 8 mg/dL Creatinine 0.5 mg/dL Cr Clearance (Est) 104.00 mL/min Glucose 109 mg/dL Osmolality - Calculated 291 mOsm/kg Calcium 9.6 mg/dL Protein, Total 7.5 g/dL Albumin 4.2 g/dL Globulin 3.3 g/dL Bilirubin, Total 0.4 mg/dL ALT (SGPT) 47 U/L AST (SGOT) 42 U/L Alkaline Phosphatase 88 IU/L WBC 5.8 10 3/uL RBC 4.47 10 6/uL HGB 14.0 g/dL HCT 40.6 % MCV 90.8 fl MCH 31.3 pg MCHC 34.5 g/dL RDW 12.7 % Platelet Count 183 10 3/cmm MPV 10.9 fL Neutrophils 2.76 10 3/uL Lymphocytes 2.5 10 3/uL Monocytes 0.4 10 3/uL Eosinophils 0.1 10 3/uL Basophils 0.0 10 3/uL Neutrophil % 47.7 % Lymphocyte % 42.3 % Monocyte % 7.6 % Eosinophil % 1.7 % Basophils % 0.5 % NRBC % 0 % Problem List: 1. Ekaterina 2 invasive adenocarcinoma of the ascending colon, stage I (T2, N0, M0). The tumor showed deficient mismatch repair proteins by IHC with loss of nuclear expression of MLH1 and PMS2. In addition, the BRAF V600E mutation was detected. 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 2. She underwent laparoscopic right hemicolectomy on 07/29/2019. Adjuvant chemotherapy was not recommended. 3. Hypothyroidism. 4. Hyperlipidemia. Problems Addressed with this Encounter and Plan: Patient with grade 2 invasive adenocarcinoma of the ascending colon, stage I (T2, N0, M0). The tumor showed deficient mismatch repair proteins by IHC with loss of nuclear expression of MLH1 and PMS2. She is being followed on observation/expectant management followinglaparoscopic right hemicolectomy on 07/29/2019, as adjuvant chemotherapy was not indicated. During follow-up she has been doing well clinically. Her surveillance CT scans showed persistent small right upper lobe pulmonary nodule. She remains on expectant management for the colon cancer. However, per recommendation, she will have a 6-month interval follow-up CT scan. Signed By: Ankit Clifford M.D. <<Signature on File>>
== END 2021-10-08 09:42 | disposition home or self-care (01) ==
PROVIDERS: PCP Family Medicine; Visit Provider Internal Medicine Medical Oncology
DX: C18.2 Malignant neoplasm of ascending colon (principal); E03.9 Hypothyroidism, unspecified; E78.5 Hyperlipidemia, unspecified; Z87.891 Personal history of nicotine dependence
CPT/HCPCS: 36415; 80053; 85025; 99214

== ENCOUNTER 2021-12-24 16:23 | Outpatient (CLI) | payer MEDICARE, SELFPAY ==
--- NOTE | 2021-12-24 16:45 | MR_ITS ---
WS: [id number] MRI HEAD WITH CONTRAST WITH ATTENTION TO THE INTERNAL AUDITORY CANALS TECHNIQUE: Sagittal T1, T2 axial, T2 axial flair, axial susceptibility weighted imaging, axial diffus ion weighted images, and coronal T2 images were obtained. Pre and post T1 axial and post T1 coronal i mages. ADC and FSPGR images. Post gadolinium images with attention to the internal auditory canals. A xial fiesta imaging. CLINICAL INFORMATION: MIXED CONDUCTIVE SENSORINEURAL HEALING LOSS COMPARISON: None. FINDINGS: No evidence of restricted diffusion to suggest acute ischemia. Ventricular system and basal cisterns are patent. Mild small vessel changes. Mild parenchymal volume loss. Small vessel changes in the arturo . Normal posterior fossa. Normal vascular flow voids skull base. No extra-axial fluid collections. No evidence of mass or mass effect. Retention cyst in the LEFT maxi llary sinus. Paranasal sinuses are otherwise well aerated. Slight mucosal thickening mastoid tips. No rmal posterior nasopharynx. No hemosiderin on susceptibly weighted images. Normal optic chiasm and pi tuitary infundibulum. Normal cavernous sinuses and Meckel's cave. Mild to moderate symmetric atrophy temporal lobes hippocampal formations. Proximal 7th and 8th cranial nerves are normal in appearance. Normal trigeminal nerve root entry zone s. No evidence of enhancing IAC or CP angle mass. Symmetric physiologic enhancement along the facial nerves bilaterally. MR/MR iac's wo/w con* [id number] IMPRESSION: 1. No evidence of restricted diffusion to suggest acute ischemia. 2. Mild small vessel changes with mild parenchymal volume loss. 3. No evidence of enhancing IAC or CP angle mass. Normal trigeminal nerve root entry zones. 4. Mild mucosal thickening of the mastoid tips. 5. Retention cysts in the LEFT maxillary sinus. 6. No hemosiderin on susceptibly weighted images.
[2021-12-24] MEDS: gadobenate dimeglumine 20 mL vial IV (17:51)
== END 2021-12-24 16:24 | disposition home or self-care (01) ==
LOC: RAD 16:27
PROVIDERS: PCP Family Medicine; Visit Provider Otolaryngology
DX: H90.8 Mixed conductive and sensorineural hearing loss, unspecified (principal)
CPT/HCPCS: 70553

== ENCOUNTER 2022-04-09 13:15 | Oncology outpatient (recurring) (ONCR) | payer MEDICARE, SELFPAY ==
--- NOTE | 2022-04-02 12:31 | CT_ITS ---
WS: [id number] Exam: CT chest wo con [id number] Date/Time of Exam: 04/02/2022 12:35 PM Reason For Exam: COLON CANCER DLP: 624.[address] scans at [facility] use at least one of these dose optimization techniques: automated e xposure control; mA and/or kV adjustment per patient size (includes targeted exams where dose is matc hed to clinical indication); or iterative reconstruction. Comparison 09/06/2021. Again noted is a 5 mm nodular density in the right upper lobe which is stable since previous study. T his might represent a small vascular malformation. No new suspicious nodules are identified in either lung. The lungs are clear and fully expanded. The airway is patent. The thoracic aorta is normal in caliber. No significant mediastinal or hilar lymphadenopathy. No pleural or pericardial effusion. No destructive bone lesions. No chest wall defects. CT/CT chest wo con [id number] IMPRESSION: 1. Stable-appearing 5 mm nodule in the right upper lobe. No new suspicious mass or lymphadenopathy in the chest.
== END 2022-04-17 23:59 | disposition home or self-care (01) ==
PROVIDERS: PCP Family Medicine; Visit Provider Internal Medicine Medical Oncology
DX: C18.2 Malignant neoplasm of ascending colon (principal)
CPT/HCPCS: 71250; G0463

== ENCOUNTER 2022-04-18 12:57 | Outpatient (CLI) | payer MEDICARE, SELFPAY ==
--- NOTE | 2022-04-18 13:08 | MM_ITS ---
WS: [id number] BILATERAL 3D TOMOSYNTHESIS DIGITAL SCREENING MAMMOGRAPHY WITH CAD CLINICAL INFORMATION: SCREENING HISTORY: Screening mammogram. No current complaints. COMPARISON: September 15, 2020 TECHNIQUE: Bilateral CC and MLO views. FINDINGS: Scattered fibroglandular densities bilaterally. No suspicious focal mass, asymmetry, calcifications, or architectural distortion. No evidence of malignancy. MM/[place] [id number] IMPRESSION: BI-RADS: 1-Negative FOLLOW UP: 1 Year Follow-up Recommend return to annual screening mammography.
== END 2022-04-18 12:58 | disposition home or self-care (01) ==
PROVIDERS: PCP Family Medicine; Visit Provider Family Medicine
DX: Z12.31 Encounter for screening mammogram for malignant neoplasm of breast (principal)
CPT/HCPCS: 77063; 77067

== ENCOUNTER 2022-10-14 11:19 | Oncology outpatient (recurring) (ONCR) | payer MEDICARE, SELFPAY ==
[2022-10-14 12:18] LABS: Basophils % 0.3 %; Eosinophils # 0.1 10^3/uL (0.0-0.8); Eosinophils % 1.4 %; Hematocrit 40.8 % (37.0-47.0); Hemoglobin 14.4 g/dL (11.5-15.3); Lymphocytes % 47.8 %; Mean Corpuscular HGB Conc 35.3 g/dL (30.0-36.0); Mean Corpuscular Hemoglobin 32.3 pg (28.0-34.0); Mean Corpuscular Volume 91.5 fl (81-99); Monocytes # 0.5 10^3/uL (0.2-0.9); Monocytes % 7.6 %; Neutrophils # 2.68 10^3/uL (1.8-7.7); Neutrophils % 42.7 %; Nucleated Red Blood Cells % 0 %; Platelet Count 177 10^3/cmm (130-400); Red Blood Count 4.46 10^6/uL (4.1-5.3); Red Cell Distribution Width 12.5 % (12.1-15.1); White Blood Count 6.3 10^3/uL (4.0-10.0)
[2022-10-14 12:49] LABS: Carcinoembryonic Antigen 1.4 ng/mL (0.0-4.7); Thyroid Stimulating Hormone 1.25 uIU/mL (0.27-4.20)
[2022-10-14 13:00] LABS: Alanine Aminotransferase 45 U/L (0-33); Alkaline Phosphatase 74 U/L (35-105); Anion Gap 12.4 (5-19); Aspartate Amino Transferase 45 U/L (0-32); Blood Urea Nitrogen 7 mg/dL (8-23); Calcium 9.4 mg/dL (8.5-10.5); Carbon Dioxide 28 mmol/L (22-29); Chloride 102 mmol/L (98-107); Globulin 3.4 g/dL (1.3-4.6); Glucose 100 mg/dL (65-115); Osmolality Calculated 284 mOsm/kg (285-295); Potassium 4.4 mmol/L (3.5-5.1); Sodium 138 mmol/L (136-145); Total Bilirubin 0.7 mg/dL (0.15-1.2); Total Protein 7.4 g/dL (6.6-8.7)
== END 2022-10-15 23:59 | disposition home or self-care (01) ==
LOC: ONCMED 11:19
PROVIDERS: PCP Nurse Practitioner Family; Visit Provider Internal Medicine Medical Oncology
DX: Z08 Encounter for follow-up examination after completed treatment for malignant neoplasm (principal); Z85.038 Personal history of other malignant neoplasm of large intestine; R91.1 Solitary pulmonary nodule; Z90.49 Acquired absence of other specified parts of digestive tract
CPT/HCPCS: 36415; 80053; 82378; 84443; 85025; 99214

== ENCOUNTER 2022-11-13 14:24 | Outpatient (CLI) | payer MEDICARE, SELFPAY ==
--- NOTE | 2022-11-13 14:43 | CT_ITS ---
WS: [id number] CT CHEST, ABDOMEN AND PELVIS WITH CONTRAST. HISTORY: Yearly surveillance, colon cancer. TECHNIQUE: Contiguous 5 mm axial imaging performed through the chest, abdomen and pelvis with IV cont rast, oral contrast has been provided. Coronal and sagittal reformats chest. Coronal and sagittal ref ormats through the abdomen and pelvis. All CT scans at [facility] use at least one of these d ose optimization techniques: automated exposure control; mA and/or kV adjustment per patient size (in cludes targeted exams where dose is matched to clinical indication); or iterative reconstruction. CONTRAST: Omnipaque 350; 100 mL IV. DLP: 719.94 mGy.cm COMPARISON: 04/02/2022, 09/06/2021 and 09/12/[address]: No pulmonary mass or nodule. Previously described 5 mm nodule in the RIGHT upper lobe has e ssentially resolved and is not visualized today. No pneumonia. No pleural effusion or pericardial eff usion. Mild cardiac enlargement. Mild atherosclerosis aorta. No adenopathy. Abdomen CT: Moderate hepatomegaly and hepatic steatosis. Normal portal vein. No bile duct dilatation. Mildly contracted gallbladder. Normal pancreas and spleen. No adrenal mass. Atherosclerosis aorta. N o aneurysm. Too small to characterize hypodensities LEFT kidney. Well-distended stomach with oral contrast. No small bowel obstruction. Constipation. Status post RIGH T colon resection. A few scattered sigmoid diverticula. Pelvic CT: Normally distended urinary bladder. No free fluid or adenopathy in the pelvis. Mildly atro phic uterus as expected. Calcification towards the fundus consistent with fibroid development. Degenerative disc disease in the lower spine no fractures. CT/CT chest abdpel w/*[id number] IMPRESSION: 1. No pulmonary mass or nodules. Previously described 5 mm nodule RIGHT upper lobe has resolved. 2. No chest, abdomen or pelvis lymphadenopathy. 3. Moderate hepatomegaly and hepatic steatosis. 4. Prior RIGHT colectomy. No recurrent mass or adenopathy. 5. Mild sigmoid diverticulosis.
[2022-11-13] MEDS: iohexol 350 mg/mL 500 mL Btl (per mL) PO (16:28)
[2022-11-13] MEDS: iohexol 350 mg/mL 500 mL Btl (per mL) IV (16:29)
== END 2022-11-13 14:25 | disposition home or self-care (01) ==
LOC: RAD 14:28
PROVIDERS: PCP Nurse Practitioner Family; Visit Provider Internal Medicine Medical Oncology
DX: C18.2 Malignant neoplasm of ascending colon (principal); K57.30 Diverticulosis of large intestine without perforation or abscess without bleeding
CPT/HCPCS: 71260; 74177; Q9967

== ENCOUNTER 2023-04-24 13:08 | Outpatient (CLI) | payer MEDICARE, SELFPAY ==
--- NOTE | 2023-04-24 | MM_ITS ---
WS: [id number] BILATERAL SCREENING DIGITAL TOMOSYNTHESIS MAMMOGRAM WITH CAD HISTORY: ANNUAL SCREENING COMPARISON: 04/18/2022 and 09/15/2020 Bilateral CC and MLO views with tomosynthesis and synthetic mammography submitted. Computer aided det ection analyzed. Breast composition: There are scattered areas of fibroglandular density. No suspicious masses, microc alcifications or architectural distortion. IMPRESSION: MM/[place] [id number] BI-RADS: 1-Negative FOLLOW UP: 1 Year Follow-up
== END 2023-04-24 13:09 | disposition home or self-care (01) ==
PROVIDERS: PCP Nurse Practitioner Family; Visit Provider Nurse Practitioner Family
DX: Z12.31 Encounter for screening mammogram for malignant neoplasm of breast (principal)
CPT/HCPCS: 77063; 77067

== ENCOUNTER 2025-05-10 15:04 | Outpatient (CLI) | payer MEDICARE, SELFPAY ==
--- NOTE | 2025-05-10 15:10 | XR_ITS ---
WS: [id number] DEXA (DUAL ENERGY X-RAY ABSORPTIOMETRY) Bone mineral density was performed using a [employer] machine. HISTORY: ASYMPTOMATIC MENOPAUSAL STATE COMPARISON: 03/26/2021 Lumbar spine BMD (L1-L4): 1.552 g/cm2 T score: 3.1 Z score: 4.9 Total hip BMD: Left: 0.903 g/cm2. T score: -0.8 Z score: 1.1 Right: 0.955 g/cm2. T score: -0.4 Z score: 1.5 10 year probability of a major osteoporotic fracture is 10.6%. Compared to the prior study from 03/26/2021. Lumbar spine bone mineral density has increased by 8.1%. Bilateral hips bone mineral density has decreased by 2.2%. XR/XR DEXA axial skeleton* [id number] IMPRESSION: NORMAL BONE MINERAL DENSITY based upon the WHO classification for females. Significant increase in bone mineral density within the lumbar spine since the prior study. Significant decrease in bone mineral density in the hips since the prior study.
== END 2025-05-10 15:05 | disposition home or self-care (01) ==
LOC: RAD 15:05
PROVIDERS: PCP Nurse Practitioner Family; Visit Provider Nurse Practitioner Family
DX: Z13.820 Encounter for screening for osteoporosis (principal); Z78.0 Asymptomatic menopausal state
CPT/HCPCS: 77080